=== PATIENT | female | born 1945 | race Caucasian/White ===

== ENCOUNTER 2021-06-28 18:42 | Inpatient (IN) | payer MEDICARE ==
[~2021-06-28] VITALS: Ht 162.6 cm; Wt 52.6 kg
[2021-06-28] MEDS ORDERED: PEG (High)/E-LYTE SOLN 4,000 ML BTL PO ONE (18:45)
[2021-06-28 20:00] VITALS: BP 141/69
[2021-06-28 20:52] VITALS: BP 141/69
[2021-06-28] MEDS: HYDROMORPHONE 1MG/1ML INJ IV PRN (21:58)
[2021-06-28] MEDS: SODIUM CHLORIDE 0.9% 1000ML 1,000 ML IV SCH (21:59)
[2021-06-29] VITALS: BP 156/70
[2021-06-29] MEDS ORDERED: LACTULOSE SYRUP 20 GM/30 ML UDC PO ONE ×5 (00:15→04:20)
[2021-06-29] MEDS ORDERED: BISACODYL 5 MG TAB EC PO ONE ×2 (00:15→02:15)
[2021-06-29] MEDS: ONDANSETRON HCL INJ 2MG/ML 2ML 2 MG/ML VIAL IV PRN ×3 (00:45→16:15)
[2021-06-29 00:46] VITALS: BP 141/69
[2021-06-29] MEDS ORDERED: MINERAL OIL 132 ML BTL PR ONE (01:15)
[2021-06-29] MEDS: LEVOFLOXACIN 500MG/D5W 100ML 100 ML IV SCH (01:30)
[2021-06-29] MEDS ORDERED: VENTOLIN HFA18 GM INH (03:08)
[2021-06-29] MEDS ORDERED: PREDNISONE5 MG PO (03:08)
[2021-06-29] MEDS ORDERED: MONTELUKAST SOD10 MG PO (03:08)
[2021-06-29] MEDS ORDERED: EXCEDRIN EXTRA1 EAC1 (03:08)
[2021-06-29] MEDS ORDERED: SYMBICORT 16010.2 GM INH (03:08)
[2021-06-29] MEDS ORDERED: OMEPRAZOLE40 MG PO (03:08)
[2021-06-29] MEDS ORDERED: HYDROCHLOROTHIA25 MG PO (03:08)
[2021-06-29] MEDS ORDERED: CARVEDILOL3.125 MG PO (03:08)
[2021-06-29] MEDS ORDERED: FLUOXETINE HCL20 MG PO (03:08)
[2021-06-29] MEDS ORDERED: NEURONTIN100 MG PO (03:08)
[2021-06-29] MEDS ORDERED: BUSPIRONE HCL10 MG PO (03:08)
[2021-06-29] MEDS ORDERED: VITAMIN D3-ALO1 EACH (03:08)
[2021-06-29] MEDS ORDERED: FLONASE ALLERG9.9 ML INH (03:08)
[2021-06-29] MEDS: ALBUTEROL/IPRATROPIUM 3 ML NEB NEB PRN (03:10)
[2021-06-29] MEDS: HYDROMORPHONE 1MG/1ML INJ IV PRN ×4 (03:44→21:08)
[2021-06-29 04:00] VITALS: BP 121/66
[2021-06-29 05:25] LABS: BASOPHILS # (AUTO) 0.1 (0.0-0.1); BASOPHILS % 0.5 % (0.0-1.0); EOSINOPHILS % 0.1 % (0.0-6.0); HEMATOCRIT 36.9 % (34.2-44.1); HEMOGLOBIN 11.5 g/dL (12.0-16.0); LYMPHOCYTES # (AUTO) 1.1 (1.0-3.2); LYMPHOCYTES % 5.7 % (18.0-39.1); MEAN CORPUSCULAR HEMOGLOBIN 29.3 pg (28-32); MEAN CORPUSCULAR HGB CONC 31.2 g/dL (31-35); MEAN CORPUSCULAR VOLUME 93.9 fL (81-99); MONOCYTES # (AUTO) 1.6 (0.2-0.8); MONOCYTES % 8.3 % (4.4-11.3); NEUTROPHILS # (AUTO) 16.6 (2.1-6.9); NEUTROPHILS % 84.5 % (38.7-80.0); PLATELET COUNT 634 x10e3/uL (140-360); RED BLOOD COUNT 3.93 x10e6/uL (3.6-5.1); RED CELL DISTRIBUTION WIDTH 13.8 % (11.7-14.4)
[2021-06-29 05:57] LABS: ALBUMIN 3.4 g/dL (3.5-5.0); ANION GAP 18.4 mmol/L (8-16); CALCIUM 9.7 mg/dL (8.4-10.2); CREATININE, SERUM 1.14 mg/dL (0.57-1.11); POTASSIUM 4.4 mmol/L (3.5-5.1)
[2021-06-29] MEDS: METRONIDAZOLE 500MG/NS 100ML 100 ML IV SCH ×3 (06:00→16:13)
[2021-06-29] MEDS ORDERED: HYDROMORPHONE 1MG/1ML INJ IV ONE (06:55)
[2021-06-29 08:09] VITALS: BP 134/70
[2021-06-29] MEDS ORDERED: MAGNESIUM HYDROXIDE 30 ML UDC PO PRN (09:30)
[2021-06-29] MEDS: SENNOSIDES 8.6 MG TAB PO SCH (11:15)
[2021-06-29] MEDS: SODIUM CHLORIDE 0.9% 1000ML 1,000 ML IV SCH (16:14)
[2021-06-29] MEDS ORDERED: MAGNESIUM HYDROXIDE 30 ML UDC PO NR (19:00)
[2021-06-29] MEDS ORDERED: MINERAL OIL 132 ML BTL PR NR (19:00)
[2021-06-29 20:00] VITALS: BP 165/88
[2021-06-29 20:15] VITALS: BP 165/88
[2021-06-30] VITALS (18 sets, daily range): BP systolic 113–186; BP diastolic 51–93
[2021-06-30] MEDS: METRONIDAZOLE 500MG/NS 100ML 100 ML IV SCH ×4 (00:02→20:54)
[2021-06-30] MEDS: ALBUTEROL/IPRATROPIUM 3 ML NEB NEB PRN (01:39)
[2021-06-30] MEDS: LEVOFLOXACIN 500MG/D5W 100ML 100 ML IV SCH (01:59)
[2021-06-30] MEDS: ONDANSETRON HCL INJ 2MG/ML 2ML 2 MG/ML VIAL IV PRN (02:12)
[2021-06-30] MEDS: HYDROMORPHONE 1MG/1ML INJ IV PRN (02:12)
[2021-06-30 02:26] LABS: BASOPHILS # (AUTO) 0.1 (0.0-0.1); BASOPHILS % 0.2 % (0.0-1.0); LYMPHOCYTES # (AUTO) 0.6 (1.0-3.2); LYMPHOCYTES % 2.1 % (18.0-39.1); MEAN CORPUSCULAR HEMOGLOBIN 29.4 pg (28-32); MEAN CORPUSCULAR HGB CONC 30.6 g/dL (31-35); MEAN CORPUSCULAR VOLUME 96.3 fL (81-99); MONOCYTES # (AUTO) 2.3 (0.2-0.8); MONOCYTES % 7.5 % (4.4-11.3); NEUTROPHILS # (AUTO) 27.3 (2.1-6.9); PLATELET COUNT 660 x10e3/uL (140-360); RED BLOOD COUNT 3.74 x10e6/uL (3.6-5.1)
[2021-06-30] MEDS ORDERED: CEFTRIAXONE 1 GM VIAL IM ONE (03:00)
[2021-06-30] MEDS ORDERED: SODIUM CHLORIDE 0.9% 50ML 50 ML ONE ×2 (03:50→12:35)
[2021-06-30 05:39] LABS: BASOPHILS # (AUTO) 0.1 (0.0-0.1); BASOPHILS % 0.2 % (0.0-1.0); HEMATOCRIT 37.5 % (34.2-44.1); HEMOGLOBIN 11.2 g/dL (12.0-16.0); LYMPHOCYTES # (AUTO) 0.6 (1.0-3.2); LYMPHOCYTES % 1.8 % (18.0-39.1); MEAN CORPUSCULAR HEMOGLOBIN 29.1 pg (28-32); MEAN CORPUSCULAR HGB CONC 29.9 g/dL (31-35); MEAN CORPUSCULAR VOLUME 97.4 fL (81-99); MONOCYTES # (AUTO) 2.8 (0.2-0.8); MONOCYTES % 9.2 % (4.4-11.3); NEUTROPHILS # (AUTO) 26.3 (2.1-6.9); NEUTROPHILS % 87.9 % (38.7-80.0); PLATELET COUNT 650 x10e3/uL (140-360); RED BLOOD COUNT 3.85 x10e6/uL (3.6-5.1)
[2021-06-30 05:59] LABS: ANION GAP 18.2 mmol/L (8-16); CALCIUM 9.6 mg/dL (8.4-10.2); CREATININE, SERUM 0.98 mg/dL (0.57-1.11); POTASSIUM 4.2 mmol/L (3.5-5.1)
[2021-06-30] MEDS: SENNOSIDES 8.6 MG TAB PO SCH ×2 (09:00→16:25)
[2021-06-30] MEDS ORDERED: CEFTRIAXONE 1 GM in SODIUM CHLORIDE 0.9% 50ML 50 ML IV SCH (09:00)
[2021-06-30] MEDS: SODIUM CHLORIDE 0.9% 1000ML 1,000 ML IV SCH ×4 (09:05→19:05)
[2021-06-30] MEDS ORDERED: PIPERACILLIN/TAZOBACTAM 3.375 GM in SODIUM CHLORIDE 0.9% 50ML 50 ML IV ONE (09:30)
[2021-06-30 10:15] LABS: LYMPHOCYTES % (MANUAL) 6 % (19-48); MONOCYTES % (MANUAL) 6 % (3.4-9.0); NEUTROPHILS % (MANUAL) 88 % (40-74); PLATELET ESTIMATE MODERATELY INCREASED
[2021-06-30 10:16] LABS: PLATELET MORPHOLOGY COMMENT NORMAL; RBC MORPHOLOGY COMMENT NORMAL
[2021-06-30] MEDS: PROPOFOL IV EMULSION 10MG/ML 100 ML IV SCH ×2 (11:15→15:13)
[2021-06-30] MEDS ORDERED: IOPAMIDOL 370 MG/ML 200 ML INFUS..BTL INJ ONE (12:35)
[2021-06-30 14:52] LABS: ABG HCO3 32 mmol/L (22-26); ABG PCO2 48 mmHg (35-45); ABG PH 7.43 (7.35-7.45); ABG PO2 64 mmHg (80-105); ABG TCO2 33
[2021-06-30] MEDS: CEFEPIME 1 GM in SODIUM CHLORIDE 0.9% 50ML 50 ML IV SCH (17:10)
[2021-07-01] VITALS (28 sets, daily range): BP systolic 96–141; BP diastolic 45–68
[2021-07-01] MEDS: CEFEPIME 1 GM in SODIUM CHLORIDE 0.9% 50ML 50 ML IV SCH ×3 (01:36→17:44)
[2021-07-01] MEDS: SODIUM CHLORIDE 0.9% 1000ML 1,000 ML IV SCH ×4 (05:05→21:44)
[2021-07-01 05:49] LABS: BASOPHILS # (AUTO) 0.2 (0.0-0.1); BASOPHILS % 0.3 % (0.0-1.0); HEMATOCRIT 33.2 % (34.2-44.1); HEMOGLOBIN 10.7 g/dL (12.0-16.0); LYMPHOCYTES # (AUTO) 0.8 (1.0-3.2); LYMPHOCYTES % 1.8 % (18.0-39.1); MEAN CORPUSCULAR HEMOGLOBIN 29.7 pg (28-32); MEAN CORPUSCULAR HGB CONC 32.2 g/dL (31-35); MEAN CORPUSCULAR VOLUME 92.2 fL (81-99); MONOCYTES # (AUTO) 2.9 (0.2-0.8); MONOCYTES % 6.8 % (4.4-11.3); NEUTROPHILS # (AUTO) 38.8 (2.1-6.9); NEUTROPHILS % 89.3 % (38.7-80.0); PLATELET COUNT 464 x10e3/uL (140-360); RED CELL DISTRIBUTION WIDTH 14.6 % (11.7-14.4)
[2021-07-01 06:21] LABS: ANION GAP 15.6 mmol/L (8-16); CALCIUM 8.4 mg/dL (8.4-10.2); CREATININE, SERUM 0.82 mg/dL (0.57-1.11); POTASSIUM 3.6 mmol/L (3.5-5.1)
[2021-07-01 06:23] LABS: BAND NEUTROPHILS % (MANUAL) 4 %; LYMPHOCYTES % (MANUAL) 3 % (19-48); MONOCYTES % (MANUAL) 3 % (3.4-9.0); NEUTROPHILS % (MANUAL) 90 % (40-74); PLATELET ESTIMATE ADEQUATE; PLATELET MORPHOLOGY COMMENT FEW LARGE; RBC MORPHOLOGY COMMENT NORMAL
[2021-07-01] MEDS: SENNOSIDES 8.6 MG TAB PO SCH ×2 (07:44→17:53)
[2021-07-01] MEDS: METRONIDAZOLE 500MG/NS 100ML 100 ML IV SCH ×2 (08:50→17:44)
[2021-07-01] MEDS ORDERED: CEFEPIME 1 GM in SODIUM CHLORIDE 0.9% 50ML 50 ML IV SCH (09:00)
[2021-07-01] MEDS: PROPOFOL IV EMULSION 10MG/ML 100 ML IV SCH (11:27)
[2021-07-01] MEDS: ACETAMINOPHEN 325 MG TAB PO SCH ×2 (12:12→17:54)
[2021-07-01] MEDS ORDERED: EPINEPHRINE HCL SYRINGE ONE (14:28)
[2021-07-01] MEDS ORDERED: ATROPINE SULFATE 0.1 MG/ML 10ML SYR ONE (14:28)
[2021-07-01] MEDS ORDERED: SODIUM BICARBONATE 8.4% INJ 50 ML SYR ONE (14:28)
[2021-07-01 15:55] LABS: ABG PCO2 47 mmHg (35-45); ABG PH 7.38 (7.35-7.45); ABG PO2 125 mmHg (80-105)
[2021-07-01 15:56] LABS: ABG HCO3 28 mmol/L (22-26); ABG TCO2 29
[2021-07-01] MEDS ORDERED: DEPAKOTE ER 500MG TAB(ONCE DAILY) PO SCH (17:00)
[2021-07-01] MEDS ORDERED: LEVETIRACETAM 500 MG TAB PO SCH (17:00)
[2021-07-02] VITALS (27 sets, daily range): BP systolic 100–120; BP diastolic 39–61
[2021-07-02] MEDS: METRONIDAZOLE 500MG/NS 100ML 100 ML IV SCH ×4 (00:01→17:44)
[2021-07-02] MEDS: CEFEPIME 1 GM in SODIUM CHLORIDE 0.9% 50ML 50 ML IV SCH ×3 (01:20→18:49)
[2021-07-02] MEDS ORDERED: LEVOFLOXACIN 750MG/D5W 150ML 150 ML IV ONE (01:45)
[2021-07-02] MEDS: PROPOFOL IV EMULSION 10MG/ML 100 ML IV SCH (03:00)
[2021-07-02 05:42] LABS: BASOPHILS # (AUTO) 0.1 (0.0-0.1); BASOPHILS % 0.2 % (0.0-1.0); HEMATOCRIT 29.5 % (34.2-44.1); HEMOGLOBIN 9.1 g/dL (12.0-16.0); LYMPHOCYTES # (AUTO) 0.9 (1.0-3.2); LYMPHOCYTES % 2.2 % (18.0-39.1); MEAN CORPUSCULAR HEMOGLOBIN 29.5 pg (28-32); MEAN CORPUSCULAR HGB CONC 30.8 g/dL (31-35); MEAN CORPUSCULAR VOLUME 95.8 fL (81-99); MONOCYTES # (AUTO) 2.3 (0.2-0.8); MONOCYTES % 5.8 % (4.4-11.3); NEUTROPHILS # (AUTO) 35.9 (2.1-6.9); NEUTROPHILS % 90.4 % (38.7-80.0); PLATELET COUNT 338 x10e3/uL (140-360); RED BLOOD COUNT 3.08 x10e6/uL (3.6-5.1)
[2021-07-02] MEDS: ACETAMINOPHEN 1000 MG/100 ML IV SCH ×4 (05:44→17:44)
[2021-07-02 06:02] LABS: ALBUMIN 1.8 g/dL (3.5-5.0); ALBUMIN/GLOBULIN RATIO 0.7 (0.8-2.0); ANION GAP 12.2 mmol/L (8-16); CALCIUM 7.8 mg/dL (8.4-10.2); CREATININE, SERUM 0.64 mg/dL (0.57-1.11); POTASSIUM 3.2 mmol/L (3.5-5.1)
[2021-07-02] MEDS: LEVETIRACETAM 500MG/5ML VIAL 500 MG in SODIUM CHLORIDE 0.9% 100 ML 100 ML IV SCH ×2 (08:38→21:04)
[2021-07-02] MEDS: SENNOSIDES 8.6 MG TAB PO SCH ×2 (08:38→16:27)
[2021-07-02] MEDS: VALPROATE SOD INJ 500 MG in SODIUM CHLORIDE 0.9% 100 ML 100 ML IV SCH ×2 (08:38→20:58)
[2021-07-02 12:03] LABS: BAND NEUTROPHILS % (MANUAL) 2 %; LYMPHOCYTES % (MANUAL) 1 % (19-48); MONOCYTES % (MANUAL) 1 % (3.4-9.0); NEUTROPHILS % (MANUAL) 96 % (40-74)
[2021-07-02 12:04] LABS: PLATELET ESTIMATE ADEQUATE; PLATELET MORPHOLOGY COMMENT NORMAL; RBC MORPHOLOGY COMMENT NORMAL
[2021-07-02] MEDS ORDERED: POTASSIUM CHLORIDE 20MEQ/100ML 200 ML IV ONE (14:45)
[2021-07-02 16:30] LABS: ABG HCO3 31 mmol/L (22-26); ABG PCO2 54 mmHg (35-45); ABG PH 7.36 (7.35-7.45); ABG PO2 93 mmHg (80-105)
[2021-07-02 16:31] LABS: ABG TCO2 32
[2021-07-02] MEDS: SODIUM CHLORIDE 0.9% 1000ML 1,000 ML IV SCH (20:58)
[2021-07-03] VITALS (25 sets, daily range): BP systolic 83–124; BP diastolic 38–61
[2021-07-03] MEDS: ACETAMINOPHEN 1000 MG/100 ML IV SCH (00:29)
[2021-07-03] MEDS: METRONIDAZOLE 500MG/NS 100ML 100 ML IV SCH ×4 (00:29→17:00)
[2021-07-03] MEDS: CEFEPIME 1 GM in SODIUM CHLORIDE 0.9% 50ML 50 ML IV SCH ×3 (01:00→16:03)
[2021-07-03] MEDS: LEVOFLOXACIN 500MG/D5W 100ML 100 ML IV SCH (04:57)
[2021-07-03 06:23] LABS: BASOPHILS # (AUTO) 0.1 (0.0-0.1); BASOPHILS % 0.2 % (0.0-1.0); EOSINOPHILS # (AUTO) 0.1 (0.0-0.4); EOSINOPHILS % 0.2 % (0.0-6.0); HEMOGLOBIN 8.9 g/dL (12.0-16.0); LYMPHOCYTES # (AUTO) 0.9 (1.0-3.2); LYMPHOCYTES % 3.1 % (18.0-39.1); MEAN CORPUSCULAR HEMOGLOBIN 29.8 pg (28-32); MEAN CORPUSCULAR HGB CONC 30.7 g/dL (31-35); MONOCYTES # (AUTO) 1.9 (0.2-0.8); MONOCYTES % 6.5 % (4.4-11.3); NEUTROPHILS % 88.6 % (38.7-80.0); PLATELET COUNT 297 x10e3/uL (140-360); RED BLOOD COUNT 2.99 x10e6/uL (3.6-5.1); RED CELL DISTRIBUTION WIDTH 15.3 % (11.7-14.4)
[2021-07-03 06:46] LABS: ALBUMIN 1.7 g/dL (3.5-5.0); ALBUMIN/GLOBULIN RATIO 0.6 (0.8-2.0); ANION GAP 11.6 mmol/L (8-16); CALCIUM 7.9 mg/dL (8.4-10.2); CREATININE, SERUM 0.61 mg/dL (0.57-1.11); POTASSIUM 3.6 mmol/L (3.5-5.1)
[2021-07-03] MEDS: VALPROATE SOD INJ 500 MG in SODIUM CHLORIDE 0.9% 100 ML 100 ML IV SCH ×2 (08:01→20:47)
[2021-07-03] MEDS: SENNOSIDES 8.6 MG TAB PO SCH ×2 (09:00→15:50)
[2021-07-03] MEDS: LEVETIRACETAM 500MG/5ML VIAL 500 MG in SODIUM CHLORIDE 0.9% 100 ML 100 ML IV SCH ×2 (09:03→20:48)
[2021-07-03] MEDS: PROPOFOL IV EMULSION 10MG/ML 100 ML IV SCH (11:15)
[2021-07-03] MEDS: SODIUM CHLORIDE 0.9% 1000ML 1,000 ML IV SCH ×2 (15:50→17:05)
[2021-07-04] VITALS (14 sets, daily range): BP systolic 98–144; BP diastolic 37–67
[2021-07-04] MEDS: CEFEPIME 1 GM in SODIUM CHLORIDE 0.9% 50ML 50 ML IV SCH ×2 (00:56→10:29)
[2021-07-04] MEDS: METRONIDAZOLE 500MG/NS 100ML 100 ML IV SCH ×3 (00:56→11:55)
[2021-07-04] MEDS: LEVOFLOXACIN 500MG/D5W 100ML 100 ML IV SCH (02:35)
[2021-07-04] MEDS: SODIUM CHLORIDE 0.9% 1000ML 1,000 ML IV SCH (06:45)
[2021-07-04] MEDS: PROPOFOL IV EMULSION 10MG/ML 100 ML IV SCH (06:46)
[2021-07-04] MEDS: SENNOSIDES 8.6 MG TAB PO SCH (09:00)
[2021-07-04] MEDS: VALPROATE SOD INJ 500 MG in SODIUM CHLORIDE 0.9% 100 ML 100 ML IV SCH (09:46)
[2021-07-04] MEDS: LEVETIRACETAM 500MG/5ML VIAL 500 MG in SODIUM CHLORIDE 0.9% 100 ML 100 ML IV SCH (09:46)
[2021-07-04] MEDS ORDERED: LORAZEPAM INJ 2 MG/ML VIAL IV PRN (12:15)
[2021-07-04] MEDS ORDERED: MORPHINE SULFATE INJ 2 MG/ML SYR IV PRN (12:15)
== END 2021-07-04 14:30 | disposition expired | DRG 871 ==
LOC: MED/SURG3 18:42 → ICU 06-30 08:39
PROVIDERS: ADMIT Internal Medicine; ATTEND Internal Medicine
PROC: 5A12012 Performance of Cardiac Output, Single, Manual (ICD-10-PCS; principal; 2021-06-30)
PROC: 0BH18EZ Insertion of Endotracheal Airway into Trachea, Via Natural or Artificial Opening Endoscopic (ICD-10-PCS; 2021-06-30)
PROC: 5A1945Z Respiratory Ventilation, 24-96 Consecutive Hours (ICD-10-PCS; 2021-06-30)
DX: A41.9 Sepsis, unspecified organism (principal); J69.0 Pneumonitis due to inhalation of food and vomit; R65.21 Severe sepsis with septic shock; J18.1 Lobar pneumonia, unspecified organism; J96.01 Acute respiratory failure with hypoxia; K57.31 Diverticulosis of large intestine without perforation or abscess with bleeding; K65.0 Generalized (acute) peritonitis; K56.609 Unspecified intestinal obstruction, unspecified as to partial versus complete obstruction; G93.1 Anoxic brain damage, not elsewhere classified; M84.48XA Pathological fracture, other site, initial encounter for fracture; Z68.1 Body mass index [BMI] 19.9 or less, adult; I46.9 Cardiac arrest, cause unspecified; M06.9 Rheumatoid arthritis, unspecified; J44.9 Chronic obstructive pulmonary disease, unspecified; G89.29 Other chronic pain; K56.41 Fecal impaction; K40.90 Unilateral inguinal hernia, without obstruction or gangrene, not specified as recurrent; K57.90 Diverticulosis of intestine, part unspecified, without perforation or abscess without bleeding; Z66 Do not resuscitate; Z20.822 Contact with and (suspected) exposure to COVID-19
CPT/HCPCS: 31500; 36415; 36600; 70450; 71045; 74018; 74019; 74177; 80048; 80053; 82805; 82948; 83605; 83970; 84443; 85025; 87040; 92950; 93306; 94002; 94003; 95822; 99251; J0171; J0692; J0696; J1170; J1956; J2405; J2543; J3480; J7030; Q9967